=== PATIENT | male | born 1950 | race Caucasian/White ===

== ENCOUNTER 2016-09-16 10:54 | Inpatient (IN) | payer MEDICARE, OTHER ==
[~2016-09-16 10:54] MED LIST: ADVAIR HFA 45-218 GM IH; ADVAIR HFA 45/212 GM IH; ASPIRIN81 MG PO; B/P PILL; CPAP; DIOVAN HCT 320/1 TAB PO; FLONASE ALLERG9.9 ML; FLUTICASONE PRO16 GM NS; ISOSORBIDE MONO30 M4 PO; LOW DOSE ASPIRI81 M3 PO; MELOXICAM15 M1 PO; MELOXICAM15 MG PO; MOTRIN800 MG PO; MULTI VITAMIN1 EAC1 PO; MULTIVITAMINS1 EAC6 PO; NORCO 5/325 TAB1 TAB PO; NORVASC5 MG PO; OMEGA 31 CAP PO; PAMELOR10 MG PO; SYMBICORT 160-4.6 GM IH; TRIGLIDE160 MG PO; TYLENOL500 MG PO; ULTRAM50 MG PO; VALSARTAN320 MG PO; VITAMIN E400 UNI4 PO; ZOCOR20 MG PO
[2016-09-17 05:43] LABS: BASO % 0.1 % (0-2); HCT-HEMATOCRIT 38.4 % (36.0-53.5); IMMATURE GRANULOCYTES ABSOLUTE 0.02 tho/cmm (0-0.03); IMMATURE GRANULOCYTES PERCENT 0.2 % (0-0.3); LYMPH % 12.6 % (20-45); LYMPH ABSOLUTE COUNT 1.2 tho/cmm (0.8-4.5); MCH (MEAN CORPUSCULAR HGB) 32.6 pg (28.0-32.0); MCHC MEAN CORPUSCULAR HGB CONC 33.9 % (32.0-36.0); MCV (MEAN CELL VOLUME) 96.2 fl (82.0-96.0); MEAN PLATELET VOLUME 11.1 cmc (9.4-12.4); MONO % 6.9 % (0-12); MONOCYTE ABSOLUTE COUNT 0.7 tho/cmm (0.0-1.2); NEUTROPHIL ABSOLUTE COUNT 7.7 tho/cmm (1.6-8.0); NEUTROPHIL-AUTOMATED 7.7 tho/cmm (1.6-8.0); NEUTROPHILS % 80.2 % (40-80); RED BLOOD COUNT 3.99 mil/cmm (4.40-5.70); RED CELL DISTRIBUTION WIDTH 12.7 % (12.4-16.4); WHITE BLOOD COUNT 9.6 tho/cmm (4.0-10.0)
[2016-09-17 06:14] LABS: ANION GAP 12 mmol/L (0-20); BLOOD UREA NITROGEN 15 mg/dl (6-24); CALCIUM 8.6 mg/dl (8.5-10.5); CARBON DIOXIDE-VENOUS 26 mmol/L (22-32); CHLORIDE 107 mmol/l (96-110); CREATININE 1.05 mg/dl (0.60-1.30); GLUCOSE 133 mg/dL (70-110); POTASSIUM 4.3 mmol/L (3.7-5.1); SODIUM 141 mmol/L (135-145); eGFR VALUE FOR BLACK 85 mL/Min
[2016-09-18] MEDS ORDERED: ROBAXIN-750750 M1 PO (10:27)
[2016-09-18] MEDS ORDERED: NORCO 5-325 TA1 EACH PO (10:30)
[2016-09-18] MEDS ORDERED: TYLENOL325 M2 PO (10:32)
[2016-09-18] MEDS ORDERED: SENOKOT-S TABL1 EACH PO (10:33)
== END 2016-09-18 11:28 | DRG 460 ==
LOC: SHSA 10:54 → ORE 11:58 → PACU 17:07 → 5EC 18:31
PROVIDERS: ADMIT Neurological Surgery
PROC: 0SG00AJ Fusion of Lumbar Vertebral Joint with Interbody Fusion Device, Posterior Approach, Anterior Column, Open Approach (ICD-10-PCS; principal; 2016-09-16)
PROC: 0SG3071 Fusion of Lumbosacral Joint with Autologous Tissue Substitute, Posterior Approach, Posterior Column, Open Approach (ICD-10-PCS; principal; 2016-09-16)
PROC: 0SG0071 Fusion of Lumbar Vertebral Joint with Autologous Tissue Substitute, Posterior Approach, Posterior Column, Open Approach (ICD-10-PCS; principal; 2016-09-16)
PROC: 0SG30AJ Fusion of Lumbosacral Joint with Interbody Fusion Device, Posterior Approach, Anterior Column, Open Approach (ICD-10-PCS; principal; 2016-09-16)
PROC: 0QB30ZZ Excision of Left Pelvic Bone, Open Approach (ICD-10-PCS; principal; 2016-09-16)
PROC: 5A09357 Assistance with Respiratory Ventilation, Less than 24 Consecutive Hours, Continuous Positive Airway Pressure (ICD-10-PCS; 2016-09-16)
DX: M43.16 Spondylolisthesis, lumbar region (principal); I10 Essential (primary) hypertension; G47.33 Obstructive sleep apnea (adult) (pediatric); J45.909 Unspecified asthma, uncomplicated; M54.16 Radiculopathy, lumbar region
CPT/HCPCS: C1713; J1170; J2800; J3010; J3370